=== PATIENT | female | born 1950 | race Caucasian/White ===

== ENCOUNTER 2017-04-02 17:32 | Emergency (ER) | payer MEDICARE, MEDICAID ==
[2017-04-02] MEDS ORDERED: Albuterol/Ipratropium 3.0-0.5 MG/3 ML Neb Soln NEB ONE (18:02)
[2017-04-02] MEDS ORDERED: methylPREDNISolone Sodium Succinate 125 MG/2 ML SDV IV ONE (18:11)
--- NOTE | 2017-04-02 18:29 | EDM.PDOC ---
ED HPI GENERAL MEDICAL PROBLEM - General Chief Complaint: Respiratory Problem Stated Complaint: BREATHING Time Seen by Provider: 04/02/17 18:07 Source of Information: Reports: Patient History Limitations: Reports: No Limitations - History of Present Illness INITIAL COMMENTS - FREE TEXT/NARRATIVE: 66 years old female patient presented with chief complaint of shortness of breath progressively getting worse over the last 3 days. She have history of severe COPD, O2 dependent. Ears 2 L of oxygen at home. She continues to smoke. Worsening cough was productive clear sputum. Denies any fever. Chest tightness occasionally but not currently. Denies any nausea or vomiting. Previous history of pneumothorax, spontaneous back in May 2016. - Related Data Allergies Allergy/AdvReac Type Severity Reaction Status Date / Time codeine AdvReac Abdominal Verified 04/02/17 17:44 Cramps Home Meds: Home Meds Albuterol Sulfate 1 dose INH QID 06/13/13 [History] Budesonide [Pulmicort] 1 dose INH BID 06/13/13 [History] LORazepam [Ativan] 2 mg PO BEDTIME 06/13/13 [History] Budesonide/Formoterol Fumarate [Symbicort 80-4.5 Mcg Inhaler] 2 puff INH BID 07/14 [History] oxyCODONE 5 mg PO Q4H PRN #20 tablet 07/05/15 [Rx] Albuterol Sulfate [Proair Hfa] 1 puff INH Q2HR PRN 04/02/17 [History] Naproxen [Naproxen] 500 mg PO DAILY PRN 04/02/17 [History] Past Medical History HEENT History: Reports: Impaired Vision Cardiovascular History: Reports: Blood Clots/VTE/DVT, SOB on Exertion Respiratory History: Reports: Asthma, COPD, Pneumonia, Recurrent Other Respiratory History: wears home O2 Musculoskeletal History: Reports: Arthritis, Fracture, Osteoporosis Other Musculoskeletal History: cervical disc disease Neurological History: Reports: Other (See Below) Other Neuro History: brain bleed. Psychiatric History: Reports: Anxiety Hematologic History: Reports: Blood Transfusion(s) Oncologic (Cancer) History: Reports: Breast - Infectious Disease History Infectious Disease History: Reports: Chicken Pox - Past Surgical History Female Surgical History: Reports: Mastectomy Neurological Surgical History: Reports: C-Spine Musculoskeletal Surgical History: Reports: ORIF Social & Family History - Tobacco Use Smoking Status *Q: Current Every Day Smoker Years of Tobacco use: 50 Packs/Tins Daily: 0.2 Used Tobacco, but Quit: Yes Month Tobacco Last Used: 12 Second Hand Smoke Exposure: Yes - Caffeine Use Caffeine Use: Reports: Coffee - Alcohol Use Days Per Week of Alcohol Use: 1 Number of Drinks Per Day: 1 Total Drinks Per Week: 1 - Recreational Drug Use Recreational Drug Use: No Drug Use in Last 12 Months: Yes Recreational Drug Type: Reports: Marijuana/Hashish Recreational Drug Use Frequency: Rarely ED ROS GENERAL - Review of Systems Review Of Systems: ROS reveals no pertinent complaints other than HPI. ED EXAM, GENERAL - Physical Exam Exam: See Below Exam Limited By: No Limitations General Appearance: Alert, No Apparent Distress Nose: Normal Inspection, Normal Mucosa, No Blood Head: Atraumatic, Normocephalic Neck: Normal Inspection, Supple, Non-Tender, Full Range of Motion Respiratory/Chest: Decreased Breath Sounds, Crackles, Rales, Wheezing. No: No Respiratory Distress, Normal Breath Sounds, Respiratory Distress, Stridor, Retractions Extremities: Normal Inspection, Normal Range of Motion, Non-Tender, No Pedal Edema, Normal Capillary Refill. No: Pedal Edema Neurological: Alert, Oriented, CN II-XII Intact, Normal Cognition, Normal Gait, Normal Reflexes, No Motor/Sensory Deficits Course - Vital Signs Last Recorded V/S: Last Vital Signs Temp 37.5 C 04/02/17 17:40 Pulse 124 H 04/02/17 20:11 Resp 20 04/02/17 20:11 BP 137/101 H 04/02/17 20:11 Pulse Ox 93 L 04/02/17 20:11 - Orders/Labs/Meds Orders: Active Orders 24 hr Category Date Time Status EKG Documentation Completion [RC] ASDIRECTED Care 04/02/17 19:02 Active RT Aerosol Therapy [RC] ASDIRECTED Care 04/02/17 18:02 Active Chest 1V Frontal [CR] Stat Exams 04/02/17 19:44 Taken Chest 1V Frontal [CR] Urgent Exams 04/02/17 18:16 Taken EKG 12 Lead [EK] Urgent Ther 04/02/17 19:01 Ordered Labs: Laboratory Tests 04/02/17 04/02/17 04/02/17 Range/Units 18:16 18:16 19:29 WBC 12.8 H (4.5-11.0) K/uL RBC 4.06 (3.30-5.50) M/uL Hgb 12.6 (12.0-15.0) g/dL Hct 39.4 (36.0-48.0) % MCV 97 (80-98) fL MCH 31 (27-31) pg MCHC 32 (32-36) % Plt Count 239 (150-400) K/uL Neut % (Auto) 90 H (36-66) % Lymph % (Auto) 4 L (24-44) % Woodson % (Auto) 5 (2-6) % Eos % (Auto) 0 L (2-4) % Baso % (Auto) 0 (0-1) % Puncture Site Rt brachial ABG pH 7.341 L (7.350-7.450) ABG pCO2 71.8 H* (35.0-42.0) mmHg ABG pO2 68.0 L (75.0-100.0) mmHg ABG HCO3 37.8 H (22.0-26.0) mmol/L ABG Total CO2 35.0 H (21.0-25.0) mmol/L ABG O2 Saturation 92.6 L (95.0-98.0) % ABG O2 Content 14.7 L (15.0-23.0) %vol ABG Base Excess 10.0 mm/L ABG Hemoglobin 11.4 L (12.0-16.0) g/dL ABG Oxyhemoglobin 91.2 % ABG Carboxyhemoglobin 0.9 (0.0-1.6) % ABG Methemoglobin 0.6 % Gigi Test TNP O2 Delivery Device Nasal cannula Oxygen Flow Rate 2 L Sodium 133 L (140-148) mmol/L Potassium 4.6 (3.6-5.2) mmol/L Chloride 90 L (100-108) mmol/L Carbon Dioxide 40 H (21-32) mmol/L Anion Gap 2.8 L (5.0-14.0) mmol/L BUN 15 (7-18) mg/dL Creatinine 0.5 L (0.6-1.0) mg/dL Est Cr Clr Drug Dosing 57.85 mL/min Estimated GFR (MDRD) > 60 (>60) Glucose 99 (74-106) mg/dL Calcium 9.2 (8.5-10.1) mg/dL Magnesium 1.6 L (1.8-2.4) mg/dL Troponin I 0.101 H* (0.000-0.056) ng/mL Meds: Medications Discontinued Medications Generic Name Dose Route Start Last Admin Trade Name Kaylan PRN Reason Stop Dose Admin Albuterol/Ipratropium 3 ml 04/02/17 18:02 04/02/17 18:07 Duoneb 3.0-0.5 Mg/3 Ml NEB 04/02/17 18:03 3 ml ONETIME ONE Administration Lidocaine/Epinephrine 10 ml 04/02/17 19:01 04/02/17 20:01 Xylocaine 1% With Epinephrine 1:100,000 INFILT 04/02/17 19:02 8 ml ONETIME ONE Administration Lorazepam 0.5 mg 04/02/17 20:04 04/02/17 20:12 Ativan IVPUSH 04/02/17 20:05 0.5 mg ONETIME ONE Administration Methylprednisolone Sodium Succinate 125 mg 04/02/17 18:11 04/02/17 19:04 Solu-Medrol IV 04/02/17 18:12 Not Given ONETIME ONE - Re-Assessments/Exams Free Text/Narrative Re-Assessment/Exam: 04/02/17 18:28 Patient was seen and examined shortly after arrival. Was given DuoNeb . Lab and imaging reviewed with the patient and her at bedside. X-ray shows pneumothorax general surgeon Dr. Cook was consulted and he inserted a chest tube in the left side of his chest. Patient symptom improved. Patient was given 0.5 of Ativan. Troponin is slightly elevated 0.1. EKG shows no sign of acute ischemia. Nonspecific ST and T-wave abnormalities. We do not have any available bed for local admission. Case was discussed with Dr. Stokes hospitalist at [facility] and he accepted the transfer. Patient agrees with plan. Stable for transfer. 04/02/17 21:20 Departure - Departure Time of Disposition: 21:17 Disposition: DC/Tfer to Acute Hospital 02 Condition: Fair Clinical Impression: Pneumothorax, Elevated troponin - Discharge Information Referrals: John German MD [Primary Care Provider] - Forms: ED Department Discharge - My Orders Last 24 Hours: My Active Orders 04/02/17 18:16 Chest 1V Frontal [CR] Urgent 04/02/17 19:01 EKG 12 Lead [EK] Urgent 04/02/17 19:02 EKG Documentation Completion [RC] ASDIRECTED - Assessment/Plan Last 24 Hours: My Active Orders 04/02/17 18:16 Chest 1V Frontal [CR] Urgent 04/02/17 19:01 EKG 12 Lead [EK] Urgent 04/02/17 19:02 EKG Documentation Completion [RC] ASDIRECTED Plan: Transferred to [facility]
[2017-04-02] MEDS ORDERED: Lidocaine 1% with EPINEPHrine 1:100,000 50 ML MDV INFILT ONE (19:01)
[2017-04-02] MEDS ORDERED: LORazepam 2 MG/ML MDV IVPUSH ONE (20:04)
[2017-04-02 20:13] VITALS: BP 137/101
--- NOTE | 2017-04-03 00:07 | CONS ---
DATE OF SERVICE: 04/02/2017 REFERRING PHYSICIAN: CONSULTING PHYSICIAN: Robby Cook MD REASON FOR CONSULTATION: Shortness of breath. HISTORY OF PRESENT ILLNESS: A pleasant 66-year-old female presents with an approximately 3- day history of shortness of breath. This was complicated by her COPD and oxygen dependence. This is a recurrent problem. She has also had some clear sputum. She had a previous pneumothorax drained in February 2016. PAST MEDICAL HISTORY: COPD, pneumonia, recurrent pneumothorax, cervical disk disease, anxiety, history of breast cancer, and history of DVT. SOCIAL HISTORY: She currently smokes. FAMILY HISTORY: Noncontributory. REVIEW OF SYSTEMS: GENERAL: The patient expressed shortness of breath. HEENT: No symptoms. CARDIOVASCULAR: No chest pain. RESPIRATORY: Shortness of breath as above. GASTROINTESTINAL: No acute symptoms. GENITOURINARY: No acute symptoms. The remainder review of systems is reviewed and is negative. PHYSICAL EXAMINATION: VITAL SIGNS: Temperature 99.5, blood pressure 152/108, pulse 128, respirations 24, and 95% on 2 L. HEENT: Pupils are equal. NECK: Supple. GENERAL: The patient looks emaciated. CARDIOVASCULAR: Regular rhythm and rate. RESPIRATORY: Poor inspiratory effort on the left. ABDOMEN: Bowel sounds positive. SKIN: Shows a mastectomy, left side. EXTREMITIES: Full range of motion. LABORATORY RESULTS: White blood cell count is 12.8. Troponin is 0.1. Creatinine is 0.5. IMAGING: I did do a chest x-ray and it shows a pneumothorax, left side. ASSESSMENT: Pneumothorax, left. PLAN: The patient will undergo a chest tube placement. We discussed risks, benefits, alternatives, and limitations including, but not limited to infection, bleeding, and injury to structures such as bowel, blood vessels and other risks not listed here. The patient understands these risks and wishes to proceed. Robby Cook MD /[id number]
--- NOTE | 2017-04-03 07:52 | OR ---
DATE OF PROCEDURE: 04/02/2017 PROCEDURE: Chest tube placement, left side. COMPLICATIONS: None. POTATO CHIP FRIER: None. ANESTHESIA: Local. Risks: Risks, benefits, alternatives, limitations including, but are not limited to infection, bleeding, pneumothorax, injury to chest or abdominal structures were all explained to the patient and they wished to proceed. PROCEDURE IN DETAIL: The patient was placed in supine position in a swimmer's type position. The left chest was prepped and draped. The skin was anesthetized with lidocaine. A single transverse neri incision was made on the anterior medial line. A Brenda clamp was used to dissect down into the chest and a rm of air was noted. A 26-[place] chest tube was then inserted. This was sutured into place x2. Dressings were applied and this was hooked to Pneumovax. Tidaling and air leak were noted. Chest x-ray was performed and showed full insufflation. The patient is resting comfortably. The patient tolerated the procedure well. Robby Cook MD /[id number]
--- NOTE | 2017-04-03 08:50 | CR ---
Chest 1V Frontal HISTORY: sob FINDINGS: Portable chest, 1832 hours. Lungs are hyperinflated with flattening of the diaphragm consistent with COPD. There is a large left pneumothorax with near total atelectasis of the left lung. Mild shift of the heart and mediastinum to the right suggests possible tension component. Right lung is clear. Heart size is within normal limi ts and stable. No pleural fluid is seen. Remainder the chest is stable. IMPRESSION: There is a large left pneumothorax with possible tension component. Prominent COPD.
--- NOTE | 2017-04-03 08:53 | CR ---
Chest 1V Frontal HISTORY: chest tube FINDINGS: Portable chest, 1940 hours. Compared with exam of one hour 8 minutes prior there is placement of a left chest tube. The tip overl ies the left upper chest. There has been reexpansion of most of the left lung. Small residual 5-10% p neumothorax can be seen at the left apex. No acute infiltrate is identified. Tiny calcified granuloma s right lower chest are redemonstrated. There is prominent hyperinflation consistent with COPD. No va scular redistribution or pleural fluid is seen. Cardiomediastinal silhouette is within normal limits. Bony structures are osteopenic. IMPRESSION: Good reexpansion of the left lung status post left chest tube placement. There is a small residual 5-10% left apical pneumothorax. Prominent COPD changes are redemonstrated.
== END 2017-04-02 21:06 ==
LOC: JP.ED 17:32
DX: J93.9 Pneumothorax, unspecified (principal); R79.89 Other specified abnormal findings of blood chemistry; J44.9 Chronic obstructive pulmonary disease, unspecified; J45.909 Unspecified asthma, uncomplicated; F17.210 Nicotine dependence, cigarettes, uncomplicated; Z87.01 Personal history of pneumonia (recurrent); Z88.5 Allergy status to narcotic agent; Z79.899 Other long term (current) drug therapy
CPT/HCPCS: 32551; 36415; 36600; 71010; 80048; 82803; 83735; 84484; 85025; 93005; 93010; 94640; 96374; 99285; J2060; J7620

== ENCOUNTER 2018-09-23 07:03 | Day surgery (SDC) | payer MEDICARE, MEDICAID ==
[2018-09-23] MEDS ORDERED: Sodium Chloride 0.9% 10 ML Syringe FLUSH PRN (07:30)
[2018-09-23 07:49] VITALS: BP 129/81
--- NOTE | 2018-09-23 14:24 | OR ---
DATE OF PROCEDURE: 09/23/2018 POSTOPERATIVE CARE: Postoperative care will be provided mainly at the [address] [place] [address] [facility] in conjunction with [facility]. PREOPERATIVE DIAGNOSIS: Cataract, left eye. POSTOPERATIVE DIAGNOSIS: Cataract, left eye. PROCEDURE: Phacoemulsification with intraocular lens placement, left eye. ANESTHESIA: Topical and intracameral. ESTIMATED BLOOD LOSS: Minimal. COMPLICATIONS: None. PATHOLOGY SPECIMENS: None. SURGICAL FINDINGS: None. INDICATION FOR PROCEDURE: The patient is a 68-year-old female with history of a visually significant cataract in the left eye, which interfered with activities of daily living. This consisted of a nuclear sclerosis cataract. Following careful discussion of the risks, benefits and alternatives to cataract extraction with intraocular lens placement including blindness and , the patient elected to proceed, and informed, written consent was obtained prior to the procedure. DESCRIPTION OF THE PROCEDURE: The patient was previously identified, and a moris placed above the left eye. All sources, including the patient, indicated that the left eye was the correct eye. The patient was subsequently taken to the operating room where standard monitors were applied. The patient was then prepped and draped in the usual sterile fashion for ophthalmic surgery. Attention was first directed at the 12 o'clock position where a paracentesis port was fashioned. Shugar solution followed by Viscoat was instilled into the eye. Attention was then directed to the 8:30 position where a triplanar incision was made in a near-clear manner using a keratome. A continuous capsulorrhexis was then made using a combination of the cystotome and Utrata forceps. Hydrodissection was achieved using a balanced salt solution, and the lens rotated nicely. Phacoemulsification was then done using a modified [id number]-[id number] technique without complication. Phaco time was 9.70 CDE. The remaining cortex was removed using the irrigation/aspiration handpiece. Provisc was then instilled into the eye. A Technis lens, model [id number], at 21.5 diopters was then placed in the capsular bag using an [place] injector. The remaining viscoelastic was removed using the irrigation/aspiration forceps. All wounds were then checked and found to be watertight. The lid speculum and drapes were removed. Maxitrol ointment was placed in the patient's left eye, and the eye was shielded. The patient tolerated the procedure well. The patient was instructed to follow up tomorrow. All needle and sponge counts were correct at the end of the procedure. Ria Nguyen MD /[id number]
== END 2018-09-23 09:15 | disposition home or self-care (01) ==
LOC: JP.SDS 07:03
PROVIDERS: ATTEND Ophthalmology
DX: H25.12 Age-related nuclear cataract, left eye (principal); J45.909 Unspecified asthma, uncomplicated; Z87.891 Personal history of nicotine dependence; Z88.5 Allergy status to narcotic agent
CPT/HCPCS: V2632

== ENCOUNTER 2018-10-07 06:59 | Day surgery (SDC) | payer MEDICARE, MEDICAID ==
[2018-10-07] MEDS ORDERED: Sodium Chloride 0.9% 10 ML Syringe FLUSH PRN (07:30)
[2018-10-07 08:37] VITALS: BP 139/85
--- NOTE | 2018-10-07 14:50 | OR ---
DATE OF PROCEDURE: 10/07/2018 POSTOPERATIVE CARE: Postoperative care will be provided mainly at the [address] [place] [address] [facility] in conjunction with [facility]. PREOPERATIVE DIAGNOSIS: Cataract, right eye. POSTOPERATIVE DIAGNOSIS: Cataract, right eye. PROCEDURE: Phacoemulsification with intraocular lens placement, right eye. ANESTHESIA: Topical and intracameral. ESTIMATED BLOOD LOSS: Minimal. COMPLICATIONS: None. PATHOLOGY SPECIMENS: None. SURGICAL FINDINGS: None. INDICATION FOR PROCEDURE: The patient is a 68-year-old female with history of a visually significant cataract in the right eye, which interfered with activities of daily living. This consisted of a nuclear sclerosis cataract. Following careful discussion of the risks, benefits and alternatives to cataract extraction with intraocular lens placement including blindness and , the patient elected to proceed, and informed, written consent was obtained prior to the procedure. DESCRIPTION OF THE PROCEDURE: The patient was previously identified, and a moris placed above the right eye. All sources, including the patient, indicated that the right eye was the correct eye. The patient was subsequently taken to the operating room where standard monitors were applied. The patient was then prepped and draped in the usual sterile fashion for ophthalmic surgery. Attention was first directed at the 12 o'clock position where a paracentesis port was fashioned. Shugar solution followed by Viscoat was instilled into the eye. Attention was then directed to the 8:30 position where a triplanar incision was made in a near-clear manner using a keratome. A continuous capsulorrhexis was then made using a combination of the cystotome and Utrata forceps. Hydrodissection was achieved using a balanced salt solution, and the lens rotated nicely. Phacoemulsification was then done using a modified [id number] technique without complication. Phaco time was 10.99 CDE. The remaining cortex was removed using the irrigation/aspiration handpiece. Provisc was then instilled into the eye. A Technis lens, model [id number], at 21.0 diopters was then placed in the capsular bag using an [place] injector. The remaining viscoelastic was removed using the irrigation/aspiration forceps. All wounds were then checked and found to be watertight. The lid speculum and drapes were removed. Maxitrol ointment was placed in the patient's right eye, and the eye was shielded. The patient tolerated the procedure well. The patient was instructed to follow up tomorrow. All needle and sponge counts were correct at the end of the procedure. There were no surgical findings. Ria Nguyen MD /[id number]
== END 2018-10-07 08:55 | disposition home or self-care (01) ==
LOC: JP.SDS 06:59
PROVIDERS: ATTEND Ophthalmology
DX: H26.9 Unspecified cataract (principal); J44.9 Chronic obstructive pulmonary disease, unspecified; Z88.5 Allergy status to narcotic agent
CPT/HCPCS: 66984; V2632

== ENCOUNTER 2021-10-03 14:04 | Emergency (ER) | payer MEDICARE, MEDICAID ==
[2021-10-03 15:12] VITALS: BP 128/68; PULSE 96
== END 2021-10-03 16:38 | disposition home or self-care (01) ==
LOC: JP.ED 14:04
DX: R51.9 Headache, unspecified (principal); J44.9 Chronic obstructive pulmonary disease, unspecified; Z88.5 Allergy status to narcotic agent; Z79.82 Long term (current) use of aspirin; Z87.891 Personal history of nicotine dependence
CPT/HCPCS: 36415; 70450; 70450-26; 85651; 99282; 99284-25

== ENCOUNTER 2021-11-05 07:34 | Emergency (ER) | payer MEDICARE, MEDICAID ==
[2021-11-05] MEDS ORDERED: Sodium Chloride 0.9% 1,000 ML IV SCH (07:45)
[2021-11-05] MEDS ORDERED: Albuterol/Ipratropium 3.0-0.5 MG/3 ML Neb Soln NEB ONE (07:49)
[2021-11-05] MEDS ORDERED: methylPREDNISolone Sodium Succinate 125 MG/2 ML SDV IVPUSH ONE (07:49)
[2021-11-05 08:20] LABS: TROPONIN I HIGH SENSITIVITY 87.9 pg/mL (<=60.3)
[2021-11-05] MEDS ORDERED: Azithromycin 500 MG in Sodium Chloride 0.9% 500 ML IV ONE (08:22)
[2021-11-05] MEDS ORDERED: cefTRIAXone 1 GM in Sodium Chloride 0.9% 50 ML IV ONE ×2 (08:22→09:00)
[2021-11-05 08:37] LABS: CORONAVIRUS COVID-19 NAA NEGATIVE (NEGATIVE)
[2021-11-05] MEDS ORDERED: Azithromycin 500 MG Vial ONE (08:42)
[2021-11-05] MEDS ORDERED: Azithromycin 500 MG in Sodium Chloride 0.9% 250 ML IV ONE (09:00)
[2021-11-05] MEDS ORDERED: Ondansetron 4 MG/2 ML SDV IVPUSH ONE (09:06)
[2021-11-05] MEDS ORDERED: Albuterol 0.083% 2.5 MG/3 ML Neb Soln NEB ONE (10:18)
[2021-11-05] MEDS ORDERED: OLANZapine 10 MG Vial ONE (11:22)
[2021-11-05 13:15] VITALS: BP 102/48; PULSE 109
== END 2021-11-05 14:45 | disposition other institution (70) ==
LOC: JP.ED 07:34
DX: J44.1 Chronic obstructive pulmonary disease with (acute) exacerbation (principal); R77.8 Other specified abnormalities of plasma proteins; R09.02 Hypoxemia; Z88.5 Allergy status to narcotic agent; Z79.82 Long term (current) use of aspirin; Z20.822 Contact with and (suspected) exposure to COVID-19
CPT/HCPCS: 0241U; 36415; 71045; 80053; 83605; 84484; 85025; 93005; 93010; 94640; 96365; 96367; 96375; 99285; 99285-25; J0456; J0696; J2405; J2930; J3490; J7030; J7050; J7620